=== PATIENT | male | born 1995 | race Hispanic/Latino ===

== ENCOUNTER 2022-04-18 09:55 | Emergency (ER) | payer OTHER ==
--- NOTE | 2022-04-18 11:35 | RAD REPORT ---
EXAM DESCRIPTION: CT - Stone Protocol - 04/18/2022 10:55 am CLINICAL HISTORY: renal colic, hx stones COMPARISON: CTSTONE PROTOCOL dated 02/27/2014 TECHNIQUE: Axial 3 mm thick images were obtained without oral or IV contrast. The uizvc-zf-ygja span s the entirety of the system including uppermost abdomen and lung bases. All CT scans are performed using dose optimization technique as appropriate and may include automated exposure control or mA/KV adjustment according to patient size. FINDINGS: Mild hydronephrosis is present to the mid ureter level on the right secondary to a 5 mm ob structing mid ureter calculus. More distally the ureter is decompressed with no additional right uret eral calculi. No nonobstructing calculi a on the right. No obstruction on the left. Nonobstructing a 6 mm nonobstructing calyx calcification present mid left kidney. In the anterior mid to upper left ki dney there is a 2.2 centimeter low-density mass lateral margin. This is enlarged from 2014. Attenuati on is 7 Hounsfield units. The mass is most likely an incidental cyst but is not fully characterized o n this study. No other renal masses. Isodense masses and pyelonephritis are not excluded on a stone p rotocol CT scan. No significant adrenal finding. No urinary bladder suspicious finding. Imaged portions of the liver, spleen and pancreas show no suspicious findings on non-contrast imaging . No gallbladder or biliary tree abnormality identified. Fluid-filled stomach is present. No dilated large or small bowel. No appendicitis. No free air, free fluid or inflammatory stranding. No mass or bulky lymphadenopathy. Small fat only umbilical hernia is present. Patient has a small fat only right inguinal hernia. No acute bone finding. IMPRESSION: Mild hydronephrosis of the right collecting system secondary to a 5 mm mid ureter calcul us. A 2.2 centimeter low-density mass lateral left kidney measures larger than the 2014 comparison. This is probably a cyst but difficult to fully characterize on noncontrast imaging. Isodense masses and pyelonephritis are not excluded on stone protocol technique.
[2022-04-18] MEDS ORDERED: TAMSULOSIN 0.4 MG SR CAP ONE (11:56)
[2022-04-18] MEDS ORDERED: KETOROLAC 30 MG/ML INJ ONE (11:56)
[2022-04-18] MEDS ORDERED: ONDANSETRON 4 MG (ODT) TAB ONE (11:56)
[2022-04-18 12:23] LABS: Albumin 4.6 g/dL (3.4-5.0); Bilirubin Total 0.5 mg/dL (0.2-1.0); Potassium 4.5 mmol/L (3.5-5.1)
[2022-04-18 12:40] LABS: Hematocrit 41.8 % (39.6-49.0); MCV 89.3 fL (80-100); MPV 9.1 fL (7.6-11.3); RBC Red Blood Cell Count 4.68 M/uL (4.33-5.43)
--- NOTE | 2022-04-18 12:43 | EDPHYS ---
Physician Documentation [facility] Name: Leo Frank Jr Age: 27 yrs Sex: Male : 1995 Arrival Date: 04/18/2022 Time: 09:58 Bed 10 Private MD: ED Physician Isac Skinner HPI: 04/18 12:38 This 27 yrs old Male presents to ER via Ambulatory with complaints of Flank snw Pain, Nausea/Vomiting. 12:38 The patient complains of pain in the right mid back. The pain does not radiate. Onset: snw The symptoms/episode began/occurred suddenly, this morning. Associated signs and symptoms: Pertinent positives: nausea, vomiting. Severity of pain: At its worst the pain was severe in the emergency department the pain is unchanged. The patient has experienced a previous episode. The patient has not recently seen a physician. Historical: - Allergies: 11:43 No Known Allergies; jl7 - Home Meds: 11:43 None [Active]; jl7 - PMHx: 11:43 None; jl7 - PSHx: 11:43 None; jl7 - Immunization history:: Adult Immunizations unknown. - Social history:: Smoking status: Patient denies any tobacco usage or history of. ROS: 12:38 Constitutional: Negative for fever, chills, and weight loss, Eyes: Negative for injury, snw pain, redness, and discharge, ENT: Negative for injury, pain, and discharge, Neck: Negative for injury, pain, and swelling, Cardiovascular: Negative for chest pain, palpitations, and edema, Respiratory: Negative for shortness of breath, cough, wheezing, and pleuritic chest pain, Abdomen/GI: Negative for abdominal pain, nausea, vomiting, diarrhea, and constipation, : Negative for injury, bleeding, discharge, and swelling, MS/Extremity: Negative for injury and deformity, Skin: Negative for injury, rash, and discoloration, Neuro: Negative for headache, weakness, numbness, tingling, and seizure, Psych: Negative for depression, anxiety, suicide ideation, homicidal ideation, and hallucinations. 12:38 Back: Positive for flank pain, on the right. Exam: 12:37 Constitutional: This is a well developed, well nourished patient who is awake, alert, snw and in no acute distress. Head/Face: Normocephalic, atraumatic. Eyes: Pupils equal round and reactive to light, extra-ocular motions intact. Lids and lashes normal. Conjunctiva and sclera are non-icteric and not injected. Cornea within normal limits. Periorbital areas with no swelling, redness, or edema. ENT: Nares patent. No nasal discharge, no septal abnormalities noted. Tympanic membranes are normal and external auditory canals are clear. Oropharynx with no redness, swelling, or masses, exudates, or evidence of obstruction, uvula midline. Mucous membranes moist. Neck: Trachea midline, no thyromegaly or masses palpated, and no cervical lymphadenopathy. Supple, full range of motion without nuchal rigidity, or vertebral point tenderness. No Meningismus. Chest/axilla: Normal chest wall appearance and motion. Nontender with no deformity. No lesions are appreciated. Cardiovascular: Regular rate and rhythm with a normal S1 and S2. No gallops, murmurs, or rubs. Normal PMI, no JVD. No pulse deficits. Respiratory: Lungs have equal breath sounds bilaterally, clear to auscultation and percussion. No rales, rhonchi or wheezes noted. No increased work of breathing, no retractions or nasal flaring. Abdomen/GI: Soft, non-tender, with normal bowel sounds. No distension or tympany. No guarding or rebound. No evidence of tenderness throughout. 12:37 Back: pain, that is moderate, that is severe, of the right mid back, ROM is normal, normal spinal alignment noted, pain much improved since medications. . Vital Signs: 11:42 BP 141 / 98; Pulse 59; Resp 17; Temp 97.6; Pulse Ox 99% ; Weight 81.65 kg; Height 5 ft. jl7 9 in. (175.26 cm); Pain 5/10; 13:00 BP 137 / 99; Pulse 53; Resp 14 S; Pulse Ox 100% on R/A; Pain 3/10; jg9 14:00 BP 127 / 88; Pulse 52; Resp 14 S; Pulse Ox 95% on R/A; jg9 11:42 Body Mass Index 26.58 (81.65 kg, 175.26 cm) 7 MDM: 11:46 Patient medically screened. [facility] 12:47 Data reviewed: vital signs, nurses notes. Data interpreted: Pulse oximetry: on room air snw is 99 %. Interpretation: normal. Counseling: I had a detailed discussion with the patient and/or guardian regarding: the historical points, exam findings, and any diagnostic results supporting the discharge/admit diagnosis, the presence of at least one elevated blood pressure reading (>120/80) during this emergency department visit, lab results, radiology results, the need for outpatient follow up, to return to the emergency department if symptoms worsen or persist or if there are any questions or concerns that arise at home. Response to treatment: the patient's symptoms have markedly improved after treatment. 04/18 11:39 Order name: CBC with Diff; Complete Time: 12:48 snw 04/18 11:39 Order name: CMP; Complete Time: 12:23 snw 04/18 10:39 Order name: CT Stone Protocol; Complete Time: 11:37 snw 04/18 11:39 Order name: IV Saline Lock; Complete Time: 11:57 snw 04/18 11:39 Order name: Labs collected and sent; Complete Time: 11:57 snw Administered Medications: 11:57 Drug: Ketorolac 60 mg Route: IM; Site: Other; j9 13:07 Follow up: Response: No adverse reaction; Pain is decreased j9 11:57 Drug: Ondansetron 4 mg Route: PO; jg9 13:06 Follow up: Response: No adverse reaction j9 11:57 Drug: Flomax (tamsulosin) 0.4 mg Route: PO; jg9 13:06 Follow up: Response: No adverse reaction j9 13:00 Drug: NS 0.9% 1000 ml Route: IV; Rate: 1 bolus; Site: right antecubital; jg9 14:06 Follow up: IV Status: Completed infusion; IV Intake: 1000ml jg9 13:00 Drug: Rocephin (cefTRIAXone) 1 grams Route: IV; Rate: calculated rate; Site: right [facility] [place]cubital; 14:06 Follow up: IV Status: Completed infusion; IV Intake: 10ml jg9 Disposition Summary: 04/18/22 12:43 Discharge Ordered Location: Home snw Condition: Stable snw Diagnosis - Hydroureter snw - NEPHROLITHIASIS snw - High blood pressure reading without hx of essential hypertension snw Followup: snw - With: Emergency Department - When: As needed - Reason: Worsening of condition Followup: snw - With: Private Physician - When: 2 - 3 days - Reason: Recheck today's complaints, Continuance of care, Re-evaluation by your physician Discharge Instructions: - Discharge Summary Sheet snw - Hypertension, Adult snw - Kidney Stones snw - Renal Colic snw - Dietary Guidelines to Help Prevent Kidney Stones snw Forms: - Medication Reconciliation Form snw - Thank You Letter snw - Antibiotic Education snw - Prescription Opioid Use snw - Work release form jg9 Prescriptions: - Flomax 0.4 mg Oral capsule - take 1 capsule by ORAL route once daily 1/2 hour following the latest meal each snw day; 10 capsule; Refills: 0, Product Selection Permitted - Diclofenac Sodium 75 mg Oral tablet,delayed release (DR/EC) - take 1 tablet by ORAL route 2 times per day; 30 tablet; Refills: 0, Product snw Selection Permitted Signatures: Dispatcher [employer] Isac Muro MD MD cha Waters, Shelly, SECURITY SYSTEM INSTALLER-C SECURITY SYSTEM INSTALLER-Csnw Blade Arroyo, RN RN jl7 Mine Merlos, RN RN jg9
--- NOTE | 2022-04-18 12:43 | ER ---
Nurse's Notes [facility] Name: Leo Frank Jr Age: 27 yrs Sex: Male : 1995 Arrival Date: 04/18/2022 Time: 09:58 Bed 10 Private MD: Diagnosis: Hydroureter;NEPHROLITHIASIS;High blood pressure reading without hx of essential hypertension Presentation: 04/18 11:42 Chief complaint: Patient states: Right flank pain since this morning, just started jl7 decreasing on arrival to ER. Coronavirus screen: At this time, the client does not indicate any symptoms associated with coronavirus-19. Ebola Screen: No symptoms or risks identified at this time. Initial Sepsis Screen: Does the patient meet any 2 criteria? No. Patient's initial sepsis screen is negative. Does the patient have a suspected source of infection? No. Patient's initial sepsis screen is negative. Risk Assessment: Do you want to hurt yourself or someone else? Patient reports no desire to harm self or others. Onset of symptoms was April 18, 2022. 11:42 Method Of Arrival: Ambulatory jl7 11:42 Acuity: KIM 3 jl7 Triage Assessment: 11:43 General: Appears in no apparent distress. uncomfortable, Behavior is calm, cooperative, jl7 appropriate for age. Pain: Complains of pain in right flank Pain currently is 5 out of 10 on a pain scale. at worst was 10 out of 10 on a pain scale. GI: Reports nausea. Historical: - Allergies: 11:43 No Known Allergies; jl7 - Home Meds: 11:43 None [Active]; jl7 - PMHx: 11:43 None; jl7 - PSHx: 11:43 None; jl7 - Immunization history:: Adult Immunizations unknown. - Social history:: Smoking status: Patient denies any tobacco usage or history of. Screenin:56 Abuse screen: Denies threats or abuse. Denies injuries from another. Nutritional jg9 screening: No deficits noted. Tuberculosis screening: No symptoms or risk factors identified. Fall Risk None identified. Assessment: 11:56 Reassessment: No changes from previously documented assessment. Patient and/or family jg9 updated on plan of care and expected duration. Pain level reassessed. Patient is alert, oriented x 3, equal unlabored respirations, skin warm/dry/pink. 11:56 GI: Abdomen is flat, Reports nausea. jg9 12:00 Reassessment: Patient and/or family updated on plan of care and expected duration. Pain jg9 level reassessed. Patient is alert, oriented x 3, equal unlabored respirations, skin warm/dry/pink. 13:00 Reassessment: Patient states feeling better. Patient states symptoms have improved. jg9 14:00 Reassessment: No changes from previously documented assessment. Patient and/or family jg9 updated on plan of care and expected duration. Pain level reassessed. Patient is alert, oriented x 3, equal unlabored respirations, skin warm/dry/pink. Vital Signs: 11:42 BP 141 / 98; Pulse 59; Resp 17; Temp 97.6; Pulse Ox 99% ; Weight 81.65 kg; Height 5 ft. jl7 9 in. (175.26 cm); Pain 5/10; 13:00 BP 137 / 99; Pulse 53; Resp 14 S; Pulse Ox 100% on R/A; Pain 3/10; jg9 14:00 BP 127 / 88; Pulse 52; Resp 14 S; Pulse Ox 95% on R/A; jg9 11:42 Body Mass Index 26.58 (81.65 kg, 175.26 cm) jl7 ED Course: 09:58 Patient arrived in ED. am2 10:39 [facility]C [facility] snw 10:39 Isac Skinner MD is Attending Physician. snw 10:56 CT Stone Protocol In Process Unspecified. EDMS 11:43 Triage completed. jl7 11:43 Arm band placed on right wrist. jl7 11:44 Mine Merlos, RN is Primary Nurse. jg9 11:55 Inserted saline lock: 22 gauge in right antecubital area, using aseptic technique. jg9 Blood collected. 11:57 Patient has correct armband on for positive identification. Bed in low position. Call jg9 light in reach. Side rails up X 1. 14:13 No provider procedures requiring assistance completed. jg9 14:14 IV discontinued. jg9 Administered Medications: 11:57 Drug: Ketorolac 60 mg Route: IM; Site: Other; jg9 13:07 Follow up: Response: No adverse reaction; Pain is decreased jg9 11:57 Drug: Ondansetron 4 mg Route: PO; jg9 13:06 Follow up: Response: No adverse reaction jg9 11:57 Drug: Flomax (tamsulosin) 0.4 mg Route: PO; jg9 13:06 Follow up: Response: No adverse reaction jg9 13:00 Drug: NS 0.9% 1000 ml Route: IV; Rate: 1 bolus; Site: right antecubital; jg9 14:06 Follow up: IV Status: Completed infusion; IV Intake: 1000ml jg9 13:00 Drug: Rocephin (cefTRIAXone) 1 grams Route: IV; Rate: calculated rate; Site: right jg9 antecubital; 14:06 Follow up: IV Status: Completed infusion; IV Intake: 10ml jg9 Medication: 14:14 VIS not applicable for this client. jg9 Intake: 14:06 IV: 10ml; Total: 10ml. jg9 14:06 IV: 1000ml; Total: 1010ml. jg9 Outcome: 12:43 Discharge ordered by . reggie 14:13 Discharged to home ambulatory. jg9 14:13 Condition: stable 14:13 Discharge instructions given to patient, Instructed on discharge instructions, follow up and referral plans. Demonstrated understanding of instructions, follow-up care, Prescriptions given X 2. 14:14 Patient left the ED. jg9 Signatures: Dispatcher [employer] EDMS Allegra Ward FNP-C MATERIALS HANDLING EQUIPMENT OPERATOR-Csnw Blade Arroyo RN RN jl7 Roxanna Gomes Jennifer RN RN jg9 Corrections: (The following items were deleted from the chart) 14:13 14:06 Response: No adverse reaction jg9 jg9
[2022-04-18] MEDS ORDERED: NA CHLORIDE 0.9% 1,000 ML ONE (13:02)
[2022-04-18] MEDS ORDERED: CEFTRIAXONE 1000 MG/VIAL ONE (13:02)
[2022-04-18 18:43] VITALS: TEMP 97.6
[2022-04-18 18:48] VITALS: BP 127/88; O2SAT 95
== END 2022-04-18 14:14 | disposition home or self-care (01) ==
LOC: ER 09:55
DX: N20.0 Calculus of kidney (principal); N13.4 Hydroureter; R03.0 Elevated blood-pressure reading, without diagnosis of hypertension
CPT/HCPCS: 85025; 36415; 80053; 76377; 74176; Q0162; J7030; 96365; 96372; 99284

== ENCOUNTER 2023-01-15 06:53 | Day surgery (SDC) | payer OTHER, SELFPAY ==
[2023-01-12 16:11] LABS: Absolute Lymphocytes (CBC) 2.2 K/uL (0.7-4.9); Hematocrit 43.4 % (39.6-49.0); Lymphocytes % 28.3 % (15.3-44.8); MPV 8.8 fL (7.6-11.3); RBC Red Blood Cell Count 4.82 M/uL (4.33-5.43)
[2023-01-15] MEDS ORDERED: CEFAZOLIN SODIUM 1 GM/VIAL ONE ×2 (07:15→08:38)
[2023-01-15] MEDS: Ringers Lactate 1,000 ML IV ONE ×2 (07:20→07:55)
[2023-01-15] MEDS ORDERED: MIDAZOLAM HCL 2 MG/2 ML INJ ONE (07:49)
[2023-01-15] MEDS ORDERED: propofoL 200 MG/20 ML VIAL IV ONE (07:49)
[2023-01-15] MEDS ORDERED: FENTANYL CITR 100 MCG/2 ML ONE (07:49)
[2023-01-15] MEDS ORDERED: ROCURONIUM 50 MG/5 ML VIAL IV ONE (07:50)
[2023-01-15] MEDS ORDERED: LIDOCAINE 2% MPF 5 ML VIAL ONE (07:50)
--- NOTE | 2023-01-15 09:05 | P.BOP ---
Preoperative diagnosis: incarcerated umbilical hernia Postoperative diagnosis: same Primary procedure: Laparoscopic repair of incarcerated umbilical hernia with mesh Show Operations Supervisor: WATSON MONAHAN (NOTE SPECIALIST) Estimated blood loss: <10cc Specimen: sac Findings: as above , incarcerated omentum Anesthesia: General Complications: None Implants: Medium ventralex Transferred to: Recovery Room Condition: Good
[2023-01-15] MEDS ORDERED: ONDANSETRON 4 MG/2 ML VIAL ONE (09:06)
[2023-01-15] MEDS ORDERED: dexAMETHasone 4 MG/ML VIAL ONE (09:06)
[2023-01-15] MEDS ORDERED: GLYCOPYRROLATE 0.2 MG/ML SYR ONE (09:09)
[2023-01-15] MEDS ORDERED: NEOSTIGMINE 1 MG/ML -10 ML VIAL ONE (09:27)
[2023-01-15 09:37] VITALS: O2SAT 100
[2023-01-15] MEDS ORDERED: CODEINE 30MG/APAP 300MG TAB ONE (10:25)
[2023-01-15 10:29] VITALS: BP 136/99; TEMP 97
--- NOTE | 2023-01-15 13:35 | DS ---
Date of Discharge: 01/15/2023 Diagnosis: Incarcerated umbilical hernia. Procedure: Laparoscopic repair of incarcerated umbilical hernia with mesh. Disposition: Home. Condition: Stable. Activity: As tolerated. No heavy lifting. Plan: Follow up in my office in 1 week. Call for appointment at [phone]. Keep area dry for 48 alfred rs, then may shower. Keep Steri-Strips intact. Medications: Previously called. LORENE/MEE Voice ID: [id number] Report ID: [id number]
--- NOTE | 2023-01-15 14:02 | OP ---
Date of Procedure: 01/15/2023 Surgeon: Ethan Mcmillan MD Wood Carver Hand: JOSTIN Recinos. Preoperative Diagnosis: Incarcerated umbilical hernia. Postoperative Diagnosis: Incarcerated umbilical hernia. Procedure: Laparoscopic repair of incarcerated umbilical hernia with mesh. Estimated Blood Loss: Less than 10 mL. Specimen: Hernia sac. Finding: Incarcerated omentum. Anesthesia: General plus local. Indication: This is the case of a 27-year-old patient, who comes to us with a tender umbilical herni a that cannot be reduced. The benefits, alternatives, and risks of laparoscopic versus open repair w ith possible mesh use were fully explained to the patient, which include, but not limited to infectio n, bleeding, damage to adjacent structures, anesthesia complication, recurrence, AK, and even . He also understands this may not relieve any symptoms. He might need more than one surgical interve ntion. He understands he might need mesh in that region. Pros and cons of mesh use were discussed w ith the patient and all questions answered to his satisfaction. He signed a consent. The area of [facility] was marked by me and the patient in the holding room. Procedure In Detail: The patient was brought to the operating room, placed in supine position. Anes thesia was done without complication. Abdominal area was prepped and draped in the usual sterile fas hion. Local anesthesia was applied followed by sharp incision of the skin in the infraumbilical fabiola on. The incision was carried down until we find the hernia sac. We noticed the hernia sac to be att ached to the umbilical skin, carefully removed. Hernia sac was opened. We noticed incarcerated omen rohith. After removing some adhesions of the omentum to the hernia sac, we were able to reduce. There was a small fatty tissue coming through that and have to be ligated with the hernia sac and hemostasi s was obtained. His hernia edges were delineated after hernia sac was removed. We noticed the fasci al edges looked thin and friable, so at that moment, we made the decision to reinforce the area with mesh intraperitoneally. I put a Karlene trocar through the umbilical area. Before that, Vicryl #1 pl aced inside the fascia to approximate the umbilical hernia edges. Once we had that done, we obtained pneumoperitoneum, placed 5 mm trocar in left and right side of the abdomen under direct visualizatio n. We selected the mesh that covered the area and overlapped the area about 3-5 cm that will be a me dium Ventralex mesh. The mesh was placed through the umbilical trocar. Trocar was removed. The fas cial edges were held together as we pulled the mesh strings to make sure that mesh goes anteriorly ag ainst the abdominal wall nice and flat. We secured the mesh anteriorly with the help of SorbaFix fix ation device. Then, after that, I ligated the mesh straps and then closed the umbilical hernia fasci a, while this approximated with #1 Vicryl in a jpyham-ex-lyekh fashion multiple times. We went intra peritoneally once again and further reinforced the mesh anteriorly circumferentially to diminish the chance of any intestines to go in between. At that moment, then I proceeded to check the area, the m esh looks nice against the abdominal wall and the umbilical area was air tight. At that moment, I de flated pneumoperitoneum, closed the subcutaneous tissue with 3-0 chromic and skin in a subcuticular f ashion with 3-0 chromic and Steri-Strips on top. Sponge count, instrument counts correct. The patie nt tolerated the procedure well. I have to mention that at the beginning we used local anesthetic. The patient was sent to recovery in stable condition. LORENE/MEE Voice ID: [id number] Report ID: [id number]
== END 2023-01-15 10:45 | disposition home or self-care (01) ==
LOC: OR 06:53
PROVIDERS: ATTEND Surgery
PROC: 0WUF4JZ Supplement Abdominal Wall with Synthetic Substitute, Percutaneous Endoscopic Approach (ICD-10-PCS; principal; 2023-01-15 08:30)
DX: K42.0 Umbilical hernia with obstruction, without gangrene (principal)
CPT/HCPCS: 85025; 80048; 36415; 88302; 49594; J2704; J1100; J2710; J2001; J2250; J3010; J2405; J7120; J0690